=== PATIENT | male | born 1975 | race Two or more races ===

== ENCOUNTER 2021-02-10 22:28 | Emergency (ER) | payer OTHER, MEDICAID ==
[~2021-02-10] VITALS: Ht 167.6 cm; Wt 70.3 kg
[2021-02-10 22:30] VITALS: BP 100/61
--- NOTE | 2021-02-10 22:32 | NUR ---
BIB [employer] FOR [facility]ICAL CLEARANCE FOR BOOKING C/O SOB, SORE THROAT, CHEST CONGESTION X3 DAYS. PT AAOX4. RESPIRATIONS EVEN AND UNLABORED. O2 SAT 98% ROOM AIR. NO ACUTE DISTRESS NOTED AT THIS TIME. [employer] AT BEDSIDE. WILL CONTINUE TO MONITOR
--- NOTE | 2021-02-10 23:00 | NUR ---
COVID SWAB COLLECTED AND SENT TO LAB
--- NOTE | 2021-02-10 23:01 | NUR ---
[facility] AT BEDSIDE FOR CXR
== END 2021-02-10 23:46 ==
LOC: ER 22:31
DX: R06.02 Shortness of breath (principal); J02.9 Acute pharyngitis, unspecified; R09.89 Other specified symptoms and signs involving the circulatory and respiratory systems; Z20.822 Contact with and (suspected) exposure to COVID-19
CPT/HCPCS: 71045; 87426; 99284; C9803